=== PATIENT | female | born 2000 | race Caucasian/White ===

== ENCOUNTER → 2019-06-27 | Outpatient (CLI) | payer MEDICAID ==
--- NOTE | 2019-06-27 14:30 | Diagnostic Imaging Report ---
INDICATION: Assessment during normal . TECHNIQUE: Multiple real-time grayscale images were obtained over the gravid uterus. COMPARISON: None. FINDINGS: Single viable intrauterine is currently in cephalic presentation. There is a normal amount of amniotic fluid. Placenta is posterior and without evidence of previa. Visualized anatomical structures including the kidneys, bladder, stomach, intracranial structures, four-chamber heart, three-vessel cord, and cord insertion site along with spine appearing unremarkable. Biometrical measurements are as follows: Biparietal 4.20 cm, age 18 weeks 6 days. Head circumference 16.05 cm, age 19 weeks 0 days. Abdominal circumference 13.41 cm, age 19 weeks 0 days. Femur length 3.28 cm, age 20 weeks 2 days. Sonographic estimate age: 19 weeks 2 days. Sonographic estimated date of delivery: 11/19/2019. Estimated Weight: 293 gm (+/- 43 gm). LMP percentile: 18%. heart rate: 139 beats per minute. number: 1 of 1. Cervical length: 4.6 cm. IMPRESSION: 1. Single live intrauterine currently in cephalic presentation. Sonographic estimated age 19 weeks 2 days for an estimated date of delivery November 19, 2019. No abnormality is suggested at this time. Dictated by: Dictated on workstation # [id number]
== END ==
LOC: RAD 10:00
PROVIDERS: ATTEND Obstetrics & Gynecology
DX: Z34.82 Encounter for supervision of other normal pregnancy, second trimester (principal); Z3A.19 19 weeks gestation of pregnancy
CPT/HCPCS: 76805

== ENCOUNTER 2019-10-08 22:08 | Outpatient (CLI) | payer MEDICAID ==
[~2019-10-08] VITALS: Ht 154.9 cm; Wt 212.2 kg
--- NOTE | 2019-10-08 22:15 | NUR ---
FLORIDALMA GAYTAN presented to unit via ambulation from ED, by self, with c/o LEAKING FLUID. FLORIDALMA GAYTAN weighed, gowned, voided, and to bed. EFHM and TOCO applied, VS taken. FLORIDALMA GAYTAN oriented to bed controls, call light, TV, heat, and A/C controls.
[2019-10-08 22:24] VITALS: BP 113/64
[2019-10-08] MEDS ORDERED: PREN-142 PO (22:28)
[2019-10-08 22:32] LABS: BILIRUBIN,URINE NEGATIVE (NEGATIVE); CLARITY,URINE CLEAR; COLOR,URINE YELLOW; GLUCOSE, URINE (UA) NEGATIVE (NEGATIVE); KETONES,URINE NEGATIVE (NEGATIVE); LEUKOCYTE ESTERASE ,URINE 3+ (NEGATIVE); NITRITE,URINE NEGATIVE (NEGATIVE); PROTEIN,URINE NEGATIVE (NEGATIVE)
[2019-10-08 22:39] VITALS: BP 113/64
[2019-10-08 22:43] LABS: BACTERIA,URINE TRACE /HPF
[2019-10-08] MEDS ORDERED: LACTATED RINGERS 1,000 ML IV ONE ×2 (23:00→23:01)
[2019-10-08] MEDS ORDERED: ceFAZolin 2 GM IV Premixed 50 ML IV ONE (23:00)
[2019-10-08] MEDS ORDERED: TERBUTALINE INJ 1 MG/ML (BRETHINE) AMP SC ONE (23:00)
[2019-10-08] MEDS ORDERED: ceFAZolin 2 GM IV Premixed 50 ML ONE (23:01)
[2019-10-08] MEDS ORDERED: TERBUTALINE INJ 1 MG/ML (BRETHINE) AMP ONE (23:15)
--- NOTE | 2019-10-09 00:41 | NUR ---
D/C instructions given & explained, pt. verbalized understanding & signed, copy of D/C instructions to pt. Pt. left WS ambulatory unaccompanied, to home via private vehicle.
--- NOTE | 2019-10-09 08:26 | Physician Query-Final Dx ---
STEPHENIE HOOD 10/09/19 0826: Clinic Account Progress/Dx Physician Query: Please give diagnosis Please include # weeks gestation Date of Service Oct 08, 2019 at 22:08 JACQUI PATTON DO 10/15/19 1659: Clinic Account Progress/Dx Physician Query: Please give diagnosis DIAGNOSIS: Diagnosis Intrauterine at 34 weeks 2. Vaginal Discharge (Fluid) STEPHENIE HOOD Oct 09, 2019 08:26 JACQUI PATTON DO Oct 15, 2019 16:59
== END 2019-10-09 00:41 | disposition home or self-care (01) ==
LOC: WSo 22:08 → LDRP 22:08 → WSo 10-09 00:41
PROVIDERS: ATTEND Obstetrics & Gynecology
DX: O26.853 Spotting complicating pregnancy, third trimester (principal); Z3A.34 34 weeks gestation of pregnancy
CPT/HCPCS: 81000; 87088; 96361; 96372; 96374; G0463; 99214

== ENCOUNTER 2019-11-02 20:25 | Outpatient (CLI) | payer OTHER, MEDICAID ==
[~2019-11-02] VITALS: Ht 154.9 cm; Wt 98.0 kg
[~2019-11-02 20:25] MED LIST: PREN-142 PO
--- NOTE | 2019-11-02 20:33 | NUR ---
FLORIDALMA GAYTAN presented to unit via ambulation from ED, with c/o CONTRACTIONS. FLORIDALMA GAYTAN weighed, gowned, voided, and to bed. EFHM and TOCO applied, VS taken. FLORIDALMA GAYTAN oriented to bed controls, call light, TV, heat, and A/C controls.
[2019-11-02 20:42] VITALS: BP 133/76
[2019-11-02 21:02] VITALS: BP 133/76
[2019-11-02 21:15] VITALS: BP 106/64
--- NOTE | 2019-11-02 21:27 | NUR ---
Dr Garvey called. Report given. New orders for discharge if no change in cervix after 1 hour. will monitor.
[2019-11-02 21:36] LABS: BILIRUBIN,URINE NEGATIVE (NEGATIVE); CLARITY,URINE CLEAR; COLOR,URINE YELLOW; GLUCOSE, URINE (UA) NEGATIVE (NEGATIVE); KETONES,URINE NEGATIVE (NEGATIVE); LEUKOCYTE ESTERASE ,URINE 2+ (NEGATIVE); NITRITE,URINE NEGATIVE (NEGATIVE); PROTEIN,URINE NEGATIVE (NEGATIVE)
[2019-11-02 21:40] VITALS: BP 100/62
[2019-11-02 21:43] LABS: BACTERIA,URINE FEW /HPF; SQUAMOUS EPITHELIAL CELL,UR 0-2 /HPF
[2019-11-02] MEDS ORDERED: CEPHALEXIN 250 MG (KEFLEX) CAP PO SCH (22:00)
[2019-11-02] MEDS ORDERED: CEPH-507 PO (22:01)
--- NOTE | 2019-11-02 22:02 | NUR ---
Prescription called to [facility], keflex 500mg QID for 7 days. Discharge instructions given at this time
--- NOTE | 2019-11-05 08:16 | Physician Query-Final Dx ---
STEPHENIE HOOD 11/05/19 0816: Clinic Account Progress/Dx Physician Query: Please give diagnosis Please include # weeks gestation Date of Service Nov 02, 2019 at 20:25 ALANA GREEN DO 11/05/19 0929: Clinic Account Progress/Dx DIAGNOSIS: Diagnosis 38 week IUP False labor contractions STEPHENIE HOOD Nov 05, 2019 08:16 ALANA GREEN DO Nov 05, 2019 09:29
== END 2019-11-02 22:02 | disposition home or self-care (01) ==
LOC: WSo 20:25 → LDRP 20:25 → WSo 22:02
PROVIDERS: ATTEND Obstetrics & Gynecology
DX: O47.1 False labor at or after 37 completed weeks of gestation (principal); Z3A.38 38 weeks gestation of pregnancy
CPT/HCPCS: 81000; 87077; 87088

== ENCOUNTER 2019-11-13 06:08 | Inpatient (IN) | payer OTHER, MEDICAID ==
[2019-11-13] VITALS (39 sets, daily range): BP systolic 91–143; BP diastolic 52–91
[~2019-11-13] VITALS: Ht 154.9 cm; Wt 97.3 kg
[~2019-11-13 06:08] MED LIST changes: +CEPH-507 PO
--- NOTE | 2019-11-13 06:15 | NUR ---
FLORIDALMA GAYTAN presented to unit via AMBULATORY from ED, accompanied by SO , with c/o INDUCTION. FLORIDALMA GAYTNA weighed, gowned, and to bed. FLORIDALMA GAYTAN oriented to bed controls, call light, TV, heat, and A/C controls. WORKING ON ADMISSION LABOR PACKET AT THIS TIME.
[2019-11-13] MEDS ORDERED: D5 LR IV SOLUTION 1,000 ML IV SCH (07:21)
--- NOTE | 2019-11-13 07:30 | NUR ---
lab here for admission labs.
--- OUTSIDE RECORDS SUMMARY | 2019-11-13 07:38 | XMS REPORT | Continuity of Care Document ---
Author Organization Unknown Address Unknown Phone Unavailable Allergies Active Description Code Type Severity Reaction Onset Reported/Identified Relationship to Patient Clinical Status Yes No Known Drug Allergies [id number] Drug Allergy Unknown N/A 10/08/2019 Medications There is no data. Problems Date Dx Coded Attending Type Code Diagnosis Diagnosed By 06/29/2019 FENECH DO, ALANA S Ot Z34.82 ENCOUNTER FOR SUPRVSN OF NORMAL PREGNANC 06/29/2019 FENECH DO, ALANA S Ot Z3A.19 19 WEEKS GESTATION OF 07/13/2019 FENECH DO, ALANA S Ot Z34.82 ENCOUNTER FOR SUPRVSN OF NORMAL PREGNANC 07/13/2019 FENECH DO, ALANA S Ot Z3A.19 19 WEEKS GESTATION OF 10/04/2019 FENECH DO, ALANA S Ot Z34.82 ENCOUNTER FOR SUPRVSN OF NORMAL PREGNANC 10/04/2019 FENECH DO, ALANA S Ot Z3A.19 19 WEEKS GESTATION OF 10/09/2019 SEALS DO, JACQUI E Ot O26.8 53 SPOTTING COMPLICATING , THIRD T 10/09/2019 SEALS DO, JACQUI E Ot Z3A.3 4 34 WEEKS GESTATION OF 11/02/2019 FENECH DO, ALANA S Ot Z34.82 ENCOUNTER FOR SUPRVSN OF NORMAL PREGNANC 11/02/2019 FENECH DO, ALANA S Ot Z3A.19 19 WEEKS GESTATION OF 11/02/2019 FENECH DO, ALANA S Ot Z34.82 ENCOUNTER FOR SUPRVSN OF NORMAL PREGNANC 11/02/2019 FENECH DO, ALANA S Ot Z3A.19 19 WEEKS GESTATION OF 11/02/2019 FENECH DO, ALANA S Ot O47.1 FALSE LABOR AT OR AFTER 37 COMPLETED WEE 11/02/2019 FENECH DO, ALANA S Ot Z3A.38 38 WEEKS GESTATION OF 11/06/2019 FENECH DO, ALANA S Ot O47.1 FALSE LABOR AT OR AFTER 37 COMPLETED WEE 11/06/2019 FENECH DO, ALANA S Ot Z3A.38 38 WEEKS GESTATION OF 11/06/2019 FENECH DO, ALANA Martini Ot O47.1 FALSE LABOR AT OR AFTER 37 COMPLETED WEE 11/06/2019 FENECH DO, ALANA Martini Ot Z3A.38 38 WEEKS GESTATION OF 11/09/2019 FENECH DO, ALANA Martini Ot Z34.82 ENCOUNTER FOR SUPRVSN OF NORMAL PREGNANC 11/09/2019 FENECH DO, ALANA Martini Ot Z3A.19 19 WEEKS GESTATION OF 11/12/2019 FENECH DO, ALANA Martini Ot Z34.82 ENCOUNTER FOR SUPRVSN OF NORMAL PREGNANC 11/12/2019 FENECH DO, ALANA Martini Ot Z3A.19 19 WEEKS GESTATION OF Procedures There is no data. Results Test Result Range Complete urinalysis with reflex to cultu re - 10/08/19 22:20 Urine color determination YELLOW NRG Urine clarity determination CLEAR NR G Urine pH measurement by test strip 7.0 5-9 Specific gravity of urine by test strip 1.020 1.016-1.022 Urine protein assay by test strip, semi-quantitative NEGATIVE NEGATIVE Urine glucose detection by automated test strip NE GATIVE NEGATIVE Erythrocytes detection in urine sediment by light micr oscopy NEGATIVE NEGATIVE Urine ketones detection by automated test strip NE GATIVE NEGATIVE Urine nitrite detection by test strip NEGATIVE NEGATIVE Urine total bilirubin detection by test strip NEGA TIVE NEGATIVE Urine urobilinogen measurement by automated test strip (mass/volume) 0.2 mg/dL < = 1.0 Urine leukocyte esterase detection by dipstick 3+ NEGATIVE Automated urine sediment erythrocyte cou nt by microscopy (number/high power field) [HPF] NRG Automated urine sediment leukocyte count by microscopy (number/high power field) [HPF] NRG Bacteria detection in urine sediment by light microsco py TRACE NRG Squamous epithelial cells detection in u rine sediment by light microscopy 2-5 NRG Crystals detection in urine sediment by light microsco py NONE NRG Casts detection in urine sediment by light microscopy NONE NRG Mucus detection in urine sediment by light microscopy SMALL NRG Complete urinalysis with reflex to culture YES NRG Bacterial urine culture - 10/08/19 22:20 Bacterial urine culture 3 OR MORE NRG COLONY COUNT >100,000/ML NRG SUSCEPTIBILITY GRAM POSITIVES, SUGGESTING PROBABLE NRG MRSA SCREEN COLLECTION CONTAMINATION WITH SKIN DOLORES RA NRG RAPID ID NO SUSCEPTIBILITY PERFORMED N RG Complete urinalysis with reflex to cultu re - 11/02/19 21:00 Urine color determination YELLOW NRG Urine clarity determination CLEAR NR G Urine pH measurement by test strip 7.0 5-9 Specific gravity of urine by test strip 1.010 1.016-1.022 Urine protein assay by test strip, semi-quantitative NEGATIVE NEGATIVE Urine glucose detection by automated test strip NE GATIVE NEGATIVE Erythrocytes detection in urine sediment by light micr oscopy NEGATIVE NEGATIVE Urine ketones detection by automated test strip NE GATIVE NEGATIVE Urine nitrite detection by test strip NEGATIVE NEGATIVE Urine total bilirubin detection by test strip NEGA TIVE NEGATIVE Urine urobilinogen measurement by automated test strip (mass/volume) 0.2 mg/dL < = 1.0 Urine leukocyte esterase detection by dipstick 2+ NEGATIVE Automated urine sediment erythrocyte cou nt by microscopy (number/high power field) NONE NRG Automated urine sediment leukocyte count by microscopy (number/high power field) [HPF] NRG Bacteria detection in urine sediment by light microsco py FEW NRG Squamous epithelial cells detection in u rine sediment by light microscopy 0-2 NRG Crystals detection in urine sediment by light microsco py NONE NRG Casts detection in urine sediment by light microscopy NONE NRG Mucus detection in urine sediment by light microscopy NEGATIVE NRG Complete urinalysis with reflex to culture YES NRG Bacterial urine culture - 11/02/19 21:00 Bacterial urine culture SEE COMMEN NRG COLONY COUNT . NRG Encounters ACCT No. Visit Date/Time Discharge Status Pt. Type Provider Facility Loc./Unit Complaint [id number] 11/02/2019 20:25:00 22:02:00 DIS Outpatient ALANA GREEN DO [facility] CONTRACTIONS [id number] 10/08/2019 22:08:00 00:41:00 DIS Outpatient SEALS DO, JACQUI E [facility]So LEAKING FLUID [id number] 06/27/2019 10:00:00 23:59:59 CLS Outpatient ALANA GREEN DO [facility] RAD [id number] 11/16/2019 06:00:00 P EN Preadmit ALANA GREEN DO INDUCTION
[2019-11-13 07:43] LABS: BASOPHILS % (AUTO) 0 % (0-10); EOSINOPHILS % (AUTO) 0 % (0-10); HEMATOCRIT 35 % (35-52); HEMOGLOBIN 11.5 G/DL (11.5-16.0); LYMPHOCYTES # (AUTO) 2.2 X 10^3 (1.0-4.0); LYMPHOCYTES % (AUTO) 28 % (12-44); MEAN CORPUSCULAR HEMOGLOBIN 27 PG (25-34); MEAN CORPUSCULAR HGB CONC 33 G/DL (32-36); MEAN CORPUSCULAR VOLUME 81 FL (80-99); MEAN PLATELET VOLUME 10.2 FL (7.4-10.4); MONOCYTES # (AUTO) 0.6 X 10^3 (0.0-1.0); MONOCYTES % (AUTO) 8 % (0-12); NEUTROPHILS % (AUTO) 63 % (42-75); PLATELET COUNT 165 10^3/uL (130-400); RED CELL DISTRIBUTION WIDTH 14.9 % (10.0-14.5); WHITE BLOOD COUNT 7.8 10^3/uL (4.3-11.0)
--- NOTE | 2019-11-13 07:43 | History & Physical-OB ---
OB - Chief Complaint & HPI Date/Time Date of Admission: Date of Admission: Nov 13, 2019 at 06:08 Date seen by a Provider: Nov 13, 2019 Time Seen by a Provider: 07:15 Chief Complaint/History OB-Reason for Admission/Chief: Induction of Labor Hx : 2 Hx Para: 1 Expected Date of Delivery: Nov 14, 2019 Gestational Age in Weeks: 39 Gestational Age in Days: 6 Admission Nurse Assessment Rev: Yes History of Labs O + Anitbody neg RI RPR NR HIV NR HBsAg NR GC neg GBS neg Allergies and Home Medications Allergies Coded Allergies: No Known Drug Allergies (Unverified , 10/08/19) Home Medications Cephalexin 500 Mg Capsule, 500 MG PO QID Prescribed by: BRANDY GAITAN on 11/02/191 Vit No.124/Iron/FA 1 Each Tablet, 1 EACH PO DAILY, (Reported) Patient Home Medication List Home Medication List Reviewed: Yes OB - History Hx of Present Care: Yes Ultrasounds: Normal mid trimester US Obstetrical Complications: None Medical Complications: None Obstetrical History Hx : 2 Hx Para: 1 Patient Past Medical History NA Social History/Family History 2nd Hand Smoke Exposure: No OB - Admission Exam Physical Exam HEENT: NCAT Heart: Rhythm Normal Lungs: Clear Abdomen: Gravid Extremities: Normal Reflexes: Normal Cervical Dilatation: 3cm Effacement: 75% Station: -2 Membranes: Intact Heart Rate: 130's Accelerations: Accelerations Present Decelerations: No Decelerations Short Term Variability: Present Skilled Nursing Variability: Average (6-25) Contractions on Admission: 6-10 Minutes Apart Intensity: Mild Lopez Scoring Tool (Modified) Dilation (cm): 3-4cm (2) Effacement (%): 51-79% (2) Descent/Station: -2 (1) Cervix Consistency: Soft (2) Cervix Position: Anterior (2) Add 1 point for: Each previous vaginal delivery (1) OB - Assessment/Plan/Diagnosis Assessment Assessment: induction of labor Admission Dx 19 yo @ 39.6 Induction of labor GBS negative Admission Status: Inpatient Order (span 2 midnights) Reason for Inpatient Admission: Induction of labor at term Plan Plan: Induction Induction Method: per Pitocin Protocol ADITI MCKEON,MED STUDENT Nov 13, 2019 07:43
[2019-11-13 07:44] LABS: BILIRUBIN,URINE NEGATIVE (NEGATIVE); CLARITY,URINE CLEAR; COLOR,URINE YELLOW; GLUCOSE, URINE (UA) NEGATIVE (NEGATIVE); KETONES,URINE NEGATIVE (NEGATIVE); LEUKOCYTE ESTERASE ,URINE 3+ (NEGATIVE); NITRITE,URINE NEGATIVE (NEGATIVE); PH,URINE 6.5 (5-9); PROTEIN,URINE NEGATIVE (NEGATIVE)
[2019-11-13] MEDS ORDERED: OXYTOCIN PRE-MIX DRIP 500 ML IV ONE (07:45)
[2019-11-13] MEDS ORDERED: OXYTOCIN PRE-MIX DRIP 500 ML IV SCH ×2 (07:47→14:33)
[2019-11-13 08:10] LABS: BACTERIA,URINE FEW /HPF
[2019-11-13] MEDS ORDERED: fentaNYL 2 mcg/ml BUPIVA 0.125 100 ML ONE (10:58)
[2019-11-13] MEDS ORDERED: fentaNYL INJECTION 100 MCG/2 ML AMP ONE (11:09)
[2019-11-13] MEDS ORDERED: BUPIVACAINE 0.25% 30 ML (SENSORCAINE) VIAL ONE (11:09)
[2019-11-13] MEDS ORDERED: LIDOCAINE PF 2% 5 ML (XYLOCAINE) VIAL ONE (11:09)
[2019-11-13] MEDS ORDERED: LACTATED RINGERS 1,000 ML IV SCH (11:45)
[2019-11-13] MEDS ORDERED: EPIDURAL (fentaNYL 2 MCG/ML BUPIVA 0.125%)100 ML BAG EPI PRN (11:45)
[2019-11-13] MEDS ORDERED: NALOXONE 0.4 MG/ML 1 ML (NARCAN) VIAL IV PRN (11:45)
[2019-11-13] MEDS ORDERED: ONDANSETRON 4 MG/2 ML (SDV) Z0FRAN IV PRN (11:45)
[2019-11-13] MEDS ORDERED: diphenhydrAMINE 50 MG/ML INJ (BENADRYL) IV PRN (11:45)
[2019-11-13] MEDS ORDERED: CATHETER FLUSH 10 ML SYR IV SCH ×2 (14:00→22:00)
[2019-11-13] MEDS ORDERED: TETANUS,DIPTH,PERTUSS P/F (BOOSTRIX) 0.5 ML VIAL IM ONE (14:45)
[2019-11-13] MEDS ORDERED: MEASLES,MUMPS,RUBELLA 1 EA INJ SQ ONE (14:45)
[2019-11-13] MEDS ORDERED: HYDROcodone/APAP 5 MG/325 MG (LORTAB) TAB PO PRN (14:45)
[2019-11-13] MEDS ORDERED: BENZOCAINE/MENTHOL (DERMOPLAST) 60 ML CAN TP PRN (14:45)
[2019-11-13] MEDS ORDERED: DIBUCAINE (NUPERCAINAL) 1% OINT 30 GM TOP PRN (14:45)
[2019-11-13] MEDS ORDERED: WITCH HAZEL(TUCKS) 40 EA JAR TOP PRN (14:45)
[2019-11-13] MEDS: IBUPROFEN 600 MG (MOTRIN) TAB PO SCH ×2 (14:58→21:21)
--- NOTE | 2019-11-13 15:52 | OB Labor & Delivery Record ---
L&D History Date of Service Date of Service: Nov 13, 2019 History Expected Date of Delivery: Nov 14, 2019 Gestational Age in Weeks: 39 Hx : 2 Hx Para: 1 Complications Events: Routine care Operative Indications (Cesarea: N/A-Vaginal Delivery Intrapartal Events: None L&D Stage1 Stage One Onset of Labor - Date: Nov 13, 2019 Monitors and Tracing Monitor Mode: External Heart Rate: 120 Monitor Accelerations: Uniform Monitor Decelerations: None Station: 0 Legal Practice Manager Variability: Average (6-10) Short Term Variability: Present Presentation: Vertex Vital Signs VS - Last 72 Hours, by Label 11/13/19 11/13/19 11/13/19 11/13/19 07:25 07:25 08:00 08:15 Temp 35.8 35.8 Pulse 74 74 54 76 Resp 18 18 18 18 B/P (MAP) 113/76 (88) 125/68 (87) 118/67 (84) Pulse Ox 100 100 O2 Delivery Room Air Room Air Room Air Room Air 11/13/19 11/13/19 11/13/19 11/13/19 08:30 08:45 09:00 09:15 Pulse 78 72 76 75 Resp 18 18 18 18 B/P (MAP) 116/68 (84) 111/73 (86) 127/91 (103) 126/74 (91) O2 Delivery Room Air Room Air Room Air Room Air 11/13/19 11/13/19 11/13/19 11/13/19 09:30 09:45 10:00 10:15 Pulse 90 82 77 Resp 18 18 18 18 B/P (MAP) 135/85 (102) 130/76 (94) 137/82 (100) O2 Delivery Room Air Room Air Room Air Room Air 11/13/19 11/13/19 11/13/19 11/13/19 10:30 10:45 11:00 11:15 Temp 36.7 Pulse 82 61 Resp 18 18 18 18 B/P (MAP) 130/84 (99) 128/67 (87) O2 Delivery Room Air Room Air Room Air Room Air 11/13/19 11/13/19 11/13/19 11/13/19 11:20 11:25 11:30 11:35 Pulse 76 74 84 87 Resp 18 18 18 18 B/P (MAP) 129/72 (91) 123/74 (90) 133/76 (95) 130/69 (89) Pulse Ox 98 98 98 97 O2 Delivery Room Air Room Air Room Air Room Air 11/13/19 11/13/19 11/13/19 11/13/19 11:40 11:45 11:50 11:55 Pulse 74 84 71 83 Resp 18 18 18 18 B/P (MAP) 119/60 (79) 133/76 (95) 106/58 (74) 110/52 (71) Pulse Ox 97 98 96 98 O2 Delivery Room Air Room Air Room Air Room Air 11/13/19 11/13/19 12:00 12:15 Pulse 86 70 Resp 18 18 B/P (MAP) 99/53 (68) 102/55 (71) Pulse Ox 98 98 O2 Delivery Room Air Room Air Rupture of Membranes Spontaneous Ruture of Membrane: No Amniotic Membrane Rupture Time: 0806 Amniotic Membrane Fluid Desc.: Clear Vaginal Bleeding Description: Normal Show Progress/Notes Patient admitted AROM performed and pitocin augmentation started to max dose of 8 mu. Received an epidural and progressed to complete and + 2 station L&D Stage2 Stage Two Stage II Date: Nov 13, 2019 Monitors and Tracing Monitor Mode: External Heart Rate: 120 Monitor Accelerations: Uniform Monitor Decelerations: Variable Mcc Variability: Average (6-10) Short Term Variability: Present Position: Right Occiput Anterior Presentation: Vertex Cord Descript/Complications Cord Vessel Description: 3 Vessels Complications nuchal cord reduced x 1 Delivery Type Infant Delivery Method: Spontaneous Vaginal Anterior Shoulder: Right Episiotomy/Perineal Laceration Laceraction(s)/Extensions: No Condition of Infant Delivery 1 minute Comment: 8 5 minute Comment: 9 Notes live female , weight pending. Infant to mothers chest skin to skin Condition of Condition of : Living Exam: No Observed Abnormalities Resuscitation Resuscitation: N/A - Spontaneous Resp L&D Stage3 Stage Three Stage III Date: Nov 13, 2019 Pictocin Pitocin Administration mu/min: 8 Pitocin ml/hr: 8 Pitocin Administration Comment: 30 mu wide open at delivery of placenta Placenta Delivery Placenta Delivery: Spontaneous Delivery Summary Summary Estimated blood loss (mL): 300 Attending at delivery: Alana Green DO Condition of Delivery Examined: Cervix Examined, Uterus Explored Post Hemorrhage: No Condition of Mother stable Condition of (s) stable ALANA GREEN DO Nov 13, 2019 3:52 pm
--- NOTE | 2019-11-13 16:30 | NUR ---
FFu/1. moderate rubra noted, approx golf ball sized clot expressed. ryan-care offered. will cont to monitor. Rt.leg remains heavy. able to move Left leg without difficulty. denies pain @ time
--- NOTE | 2019-11-13 18:30 | NUR ---
FFu/1. lt rubra noted, no clots expressed. ryan-care offered. v-pad and panties applied. pt transferred to room 311 via w/c with this RN, infant and @ side. transported via open air crib. familiarized with room surroundings. call light within reach.
--- NOTE | 2019-11-13 19:23 | NUR ---
Report given to next shift.
[2019-11-13] MEDS: DOCUSATE SODIUM 100 MG (COLACE) CAP PO SCH (20:17)
--- NOTE | 2019-11-13 20:17 | NUR ---
Pt. up to BR w/standby assist, states R thigh still "heavy & numb", but able to ambulate. Pericare taught & done, pt. tolerated well, back to bed. VSS, sched colace given, abd binder given & put on per pt's request. POC reviewed, pt. verbalized understanding & very thankful.
[2019-11-14] MEDS: IBUPROFEN 600 MG (MOTRIN) TAB PO SCH ×3 (04:04→15:49)
[2019-11-14 04:05] VITALS: BP 130/69
[2019-11-14 05:43] LABS: BASOPHILS % (AUTO) 0 % (0-10); EOSINOPHILS # (AUTO) 0.1 10^3/uL (0.0-0.3); EOSINOPHILS % (AUTO) 0 % (0-10); HEMATOCRIT 31 % (35-52); HEMOGLOBIN 10.4 G/DL (11.5-16.0); LYMPHOCYTES # (AUTO) 2.6 X 10^3 (1.0-4.0); LYMPHOCYTES % (AUTO) 23 % (12-44); MEAN CORPUSCULAR HEMOGLOBIN 27 PG (25-34); MEAN CORPUSCULAR HGB CONC 33 G/DL (32-36); MEAN CORPUSCULAR VOLUME 81 FL (80-99); MEAN PLATELET VOLUME 10.9 FL (7.4-10.4); MONOCYTES # (AUTO) 1.1 X 10^3 (0.0-1.0); MONOCYTES % (AUTO) 9 % (0-12); NEUTROPHILS # (AUTO) 7.9 X 10^3 (1.8-7.8); NEUTROPHILS % (AUTO) 68 % (42-75); PLATELET COUNT 147 10^3/uL (130-400); RED CELL DISTRIBUTION WIDTH 14.5 % (10.0-14.5); WHITE BLOOD COUNT 11.6 10^3/uL (4.3-11.0)
[2019-11-14] MEDS ORDERED: PRENATAL VITAMIN 1 EA TAB PO SCH (07:00)
--- NOTE | 2019-11-14 07:40 | Postpartum Progress Note ---
Note Note Day # 1 Subjective: Patient is without complaints. Ambulating, voiding. Tolerating a regular diet without nausea or vomiting. Normal lochia. Pain is well controlled with oral pain medications. Objective: Physical Exam: General - Alert and oriented, no apparent distress Abdomen - Soft, appropriately tender to palpation, non-distended, fundus firm at umbilicus Extremities - no edema, negative Danuta's bilaterally Assessment: Post- day # 1, spontaneous vaginal delivery. Acute blood loss anemia Plan: Routine care. Encourage breast feeding. Encourage ambulation. Ferrous sulfate supplementation. Plan for discharge today. Vitals - Labs Vital Signs - I&O Vital Signs Date Time Temp Pulse Resp B/P (MAP) Pulse Ox O2 Delivery O2 Flow Rate FiO2 11/14/19 04:05 36.2 71 18 130/69 (89) Room Air 11/13/19 23:30 36.4 78 18 143/78 (99) 99 Room Air 11/13/19 20:17 36.6 65 18 107/62 (77) 96 Room Air 11/13/19 16:18 71 18 114/57 (76) Room Air 11/13/19 16:03 74 18 104/55 (71) Room Air 11/13/19 15:48 64 18 101/57 (72) Room Air 11/13/19 15:33 60 18 111/53 (72) Room Air 11/13/19 15:21 72 18 122/68 (86) Room Air 11/13/19 14:48 88 18 91/54 (66) Room Air 11/13/19 14:33 122/69 (86) Room Air 11/13/19 14:20 120 18 128/83 (98) Room Air 11/13/19 14:00 81 18 126/87 (100) 100 Room Air 11/13/19 13:45 36.6 83 18 117/79 (92) 99 Room Air 11/13/19 13:30 65 18 106/62 (77) 99 Room Air 11/13/19 13:15 65 18 112/61 (78) 97 Room Air 11/13/19 13:00 65 18 102/52 (69) 98 Room Air 11/13/19 12:45 84 18 109/64 (79) 98 Room Air 11/13/19 12:30 81 18 111/69 (83) 92 Room Air 11/13/19 12:15 70 18 102/55 (71) 98 Room Air 11/13/19 12:00 86 18 99/53 (68) 98 Room Air 11/13/19 11:55 83 18 110/52 (71) 98 Room Air 11/13/19 11:50 71 18 106/58 (74) 96 Room Air 11/13/19 11:45 84 18 133/76 (95) 98 Room Air 11/13/19 11:40 74 18 119/60 (79) 97 Room Air 11/13/19 11:35 87 18 130/69 (89) 97 Room Air 11/13/19 11:30 84 18 133/76 (95) 98 Room Air 11/13/19 11:25 74 18 123/74 (90) 98 Room Air 11/13/19 11:20 76 18 129/72 (91) 98 Room Air 11/13/19 11:15 61 18 128/67 (87) Room Air 11/13/19 11:00 36.7 82 18 130/84 (99) Room Air 11/13/19 10:45 18 Room Air 11/13/19 10:30 18 Room Air 11/13/19 10:15 18 Room Air 11/13/19 10:00 77 18 137/82 (100) Room Air 11/13/19 09:45 82 18 130/76 (94) Room Air 11/13/19 09:30 90 18 135/85 (102) Room Air 11/13/19 09:15 75 18 126/74 (91) Room Air 11/13/19 09:00 76 18 127/91 (103) Room Air 11/13/19 08:45 72 18 111/73 (86) Room Air 11/13/19 08:30 78 18 116/68 (84) Room Air 11/13/19 08:15 76 18 118/67 (84) Room Air 11/13/19 08:00 54 18 125/68 (87) Room Air Labs Laboratory Tests 11/13/19 07:39: White Blood Count 7.8, Red Blood Count 4.31L, Hemoglobin 11.5, Hematocrit 35, Mean Corpuscular Volume 81, Mean Corpuscular Hemoglobin 27, Mean Corpuscular Hemoglobin Concent 33, Red Cell Distribution Width 14.9H, Platelet Count 165, Mean Platelet Volume 10.2, Neutrophils (%) (Auto) 63, Lymphocytes (%) (Auto) 28, Monocytes (%) (Auto) 8, Eosinophils (%) (Auto) 0, Basophils (%) (Auto) 0, Neutrophils # (Auto) 5.0, Lymphocytes # (Auto) 2.2, Monocytes # (Auto) 0.6, Eosinophils # (Auto) 0.0, Basophils # (Auto) 0.0 11/14/19 05:33: White Blood Count 11.6H, Red Blood Count 3.87L, Hemoglobin 10.4L, Hematocrit 31L , Mean Corpuscular Volume 81, Mean Corpuscular Hemoglobin 27, Mean Corpuscular Hemoglobin Concent 33, Red Cell Distribution Width 14.5, Platelet Count 147, Mean Platelet Volume 10.9H, Neutrophils (%) (Auto) 68, Lymphocytes (%) (Auto) 23, Monocytes (%) (Auto) 9, Eosinophils (%) (Auto) 0, Basophils (%) (Auto) 0, Neutrophils # (Auto) 7.9H, Lymphocytes # (Auto) 2.6, Monocytes # (Auto) 1.1H, Eosinophils # (Auto) 0.1, Basophils # (Auto) 0.0 ADITI MCKEON MED STUDENT Nov 14, 2019 07:40
--- NOTE | 2019-11-14 07:41 | Anesthesia-Regional Post-Op ---
Regional Patient Condition Mental Status: Alert, Oriented x3 Circulation: Same as Pre-Op Headache: Absent Sensation: Full Recovery Motor Block: Absent Post Op Complications Complications None Follow Up Care/Instructions Patient Instructions None needed. Anesthesia/Patient Condition Patient is doing well, no complaints, stable vital signs, no apparent adverse anesthesia problems. No complications reported per nursing. MECHE FARAH CRNA Nov 14, 2019 07:41
[2019-11-14] MEDS ORDERED: IBUP-844 PO (08:08)
[2019-11-14] MEDS ORDERED: DCS100C PO (08:08)
[2019-11-14] MEDS ORDERED: HYDR-83 PO (08:08)
[2019-11-14] MEDS ORDERED: BENZ78AE2 TP (08:08)
--- NOTE | 2019-11-14 08:11 | Discharge Inst-Women's Service ---
Discharge Inst-Women's Serv Depart Medication/Instructions New, Converted or Re-Newed RX: RX on Chart Final Diagnosis PPD 1 NVD Problems Reviewed?: Yes Consults/Follow Up Additional Follow Up: Yes Orders/Referrals Dr. Green in 6 weeks Activity Activity: Activity as Tolerated Driving Instructions: No Driving for 1 Week NO SMOKING: NO SMOKING Nothing Inside Vagina: No Douching, No [place], No Tampons Diet Discharge Diet: No Restrictions Symptoms to Report to : Bleeding Excessive, Pain Increased, Fever Over 101 Degrees F, Vaginal Bleeding Increase, Questions/Concerns For Any Problems or Questions: Contact Your Physician ALANA GREEN DO Nov 14, 2019 08:11
--- NOTE | 2019-11-14 08:11 | NUR ---
here. dismissal orders received.
--- NOTE | 2019-11-14 09:30 | NUR ---
called into mother's room. assisted with latching onto Rt.breast. c/o tenderness/soreness.
[2019-11-14] MEDS: DOCUSATE SODIUM 100 MG (COLACE) CAP PO SCH (09:34)
[2019-11-14 10:30] VITALS: BP 120/73
--- NOTE | 2019-11-14 10:30 | NUR ---
initial shift assessment completed, see interventions for further. up to shower.
--- NOTE | 2019-11-14 15:51 | NUR ---
dismissal instructions given, verbalizes understanding. reviewed follow up appointment and dismissal medications. signature page signed, placed on chart.
--- NOTE | 2019-11-14 16:05 | NUR ---
Pt dismissed to private vehicle via w/c in with CHAVO Paredes, and @ side. secured rear facing car seat upon arrival to vehicle. pt stable with no sx's of distress noted.
== END 2019-11-14 16:05 | disposition home or self-care (01) | DRG 806 ==
LOC: LDRP 06:08
PROVIDERS: ADMIT Obstetrics & Gynecology; ATTEND Obstetrics & Gynecology
PROC: 10E0XZZ Delivery of Products of Conception, External Approach (ICD-10-PCS; principal; 2019-11-13)
PROC: 10907ZC Drainage of Amniotic Fluid, Therapeutic from Products of Conception, Via Natural or Artificial Opening (ICD-10-PCS; 2019-11-13)
DX: O80 Encounter for full-term uncomplicated delivery (principal); D62 Acute posthemorrhagic anemia; Z37.0 Single live birth; O99.03 Anemia complicating the puerperium; Z3A.39 39 weeks gestation of pregnancy
CPT/HCPCS: 36415; 81000; 85025; 86850; 86900; 86901; 87088